=== PATIENT | female | born 1950 | race Caucasian/White ===

== ENCOUNTER → 2016-12-03 | Outpatient (CLI) | payer MEDICARE, BC ==
[~2016-12-03] MED LIST: 3N1 COMMODE MC; ATEN50TA PO; BACTDS PO; BEN25 PO; CHOL2000 PO; CITRACAL PO; CPM MC; DOCU-144 PO; DULR PR; LEVO125T PO; LEVO137T24 PO; NA P133E3 PR; OXYC-481 PO; RANI150T9 PO; TRAM50TA2 PO; UDMOM PO; WALK1EAC23 MC
--- NOTE | 2016-12-04 09:15 | RADRPT ---
PROCEDURE: XR Knee. CLINICAL INDICATION: Left knee pain TECHNIQUE: Three views of the left knee. COMPARISON: 05/16/2016 FINDINGS: Left knee prosthesis is identified in anatomic location. No acute fracture or dislocation is seen. Alignment is anatomic. No other abnormality is identified. IMPRESSION: 1. Stable appearance of left knee replacement. 2. No acute fracture or dislocation is seen. RPTAT: QQ .Dante Brown MD, MD Date Time Electronically viewed and signed by .Dante Brown MD, MD on 12/04/2016 09:14 .R/
== END | disposition home or self-care (01) ==
LOC: HKI 08:36
PROVIDERS: ATTEND Orthopaedic Surgery
DX: Z47.1 Aftercare following joint replacement surgery (principal); Z96.652 Presence of left artificial knee joint
CPT/HCPCS: 73562; G0463